=== PATIENT | male | born 1950 | race Caucasian/White ===

== ENCOUNTER → 2018-04-16 | Outpatient (CLI) | payer BC ==
[~2018-04-16] VITALS: Ht 180.3 cm; Wt 97.6 kg
[~2018-04-16] MED LIST: ASPIRIN 81M81 MG/TA2 PO; COZAAR100 MG PO; GLUCOSAMIN 500 PO; MULTI VITAMINS1 TAB PO; OXY IR5 MG PO; VITAMIN C500 MG PO; ZOLOFT 100MG100 MG PO
[2018-04-16 09:52] VITALS: BP 181/89; PULSE 57
[2018-04-16 11:02] VITALS: BP 176/98; PULSE 57
== END ==
LOC: COL.RAD 09:00
DX: M51.26 Other intervertebral disc displacement, lumbar region (principal)
CPT/HCPCS: J3301

== ENCOUNTER → 2018-05-07 | Outpatient (CLI) | payer BC ==
[~2018-05-07] VITALS: Ht 180.3 cm; Wt 98.2 kg
[~2018-05-07] MED LIST changes: +HCTZ 25MG TAB25 MG PO
[2018-05-07 12:16] VITALS: BP 161/101; PULSE 70
[2018-05-07 13:15] VITALS: BP 164/101; PULSE 67
--- NOTE | 2018-05-07 13:40 | NUR ---
Pt out to car per wheelchair. Reports pain is now gone in right buttock and leg. Pt up and into car without assistance.
== END ==
LOC: COL.RAD 11:45
DX: M47.816 Spondylosis without myelopathy or radiculopathy, lumbar region (principal); M51.26 Other intervertebral disc displacement, lumbar region
CPT/HCPCS: J3301